=== PATIENT | male | born 1990 | race Caucasian/White ===

== ENCOUNTER 2022-11-15 22:51 | Inpatient (IN) | payer OTHER, SELFPAY ==
[2022-11-16] MEDS: Melatonin 3 MG TABLET 6 MG PO (01:51)
[2022-11-16 02:37] VITALS: BMI 37.1
[2022-11-16 06:00] VITALS: BP 113/70; PULSE 113; RESP 16; TEMP 36.8
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
[2022-11-16 07:16] LABS: MANUAL DIFF FLAG NO
[2022-11-16 07:21] LABS: Basophils Percent Auto 0.1 % (0-2); Eosinophils Absolute Auto 0.1 X10*3/uL (0.0-0.4); Eosinophils Percent Auto 1.1 % (0-4); Hematocrit 50.2 % (42.0-52.0); Hemoglobin 16.9 g/dl (14.0-18.0); Imm Gran Abs Auto 0.04 X10*3/uL (0.00-0.03); Imm Gran Pct Auto 0.4 % (0.0-0.4); Lymphocytes Absolute Auto 2.9 X10*3/uL (1.2-4.9); Lymphocytes Percent Auto 29.5 % (20-40); Mean Corpuscular HGB Conc 33.7 g/dl (31.0-36.0); Mean Corpuscular Hemoglobin 28.7 pg (27.0-33.0); Mean Corpuscular Volume 85.2 fL (80.0-98.0); Mean Platelet Volume 9.4 fL (9.4-12.4); Monocytes Absolute Auto 0.7 X10*3/uL (0.1-1.2); Monocytes Percent Auto 7.3 % (2-11); Neutrophils Percent Auto 61.6 % (45-73); Platelet Count 273 X10*3/uL (160-400); Red Blood Count 5.89 X10*6/uL (4.60-5.80); Red Cell Distribution Width 12.8 % (11.0-16.0); White Blood Count 9.8 X10*3/uL (4.8-10.8)
[2022-11-16 07:28] LABS: Estimated Average Glucose 94 mg/dL; Hemoglobin A1c % 4.9 %
[2022-11-16 07:51] LABS: Alanine Aminotransferase 27 U/L (0-40); Albumin Level 4.5 g/dL (3.5-5.0); Alkaline Phosphatase 74 U/L (39-117); Anion Gap 13 (12-20); Aspartate Amino Transferase 15 U/L (5-37); Bilirubin Total 0.8 mg/dL (0.0-1.0); Blood Urea Nitrogen 13 mg/dL (9-16); Carbon Dioxide 29 mmol/L (22-29); Chloride 103 mmol/L (96-108); Cholesterol 156 mg/dL; Estimated Glomerular Filt Rate > 60; Glucose Fasting 101 mg/dL (60-99); HDL Cholesterol 38 mg/dL; LDL Cholesterol Calculated 107 mg/dl; Potassium 4.9 mmol/L (3.3-5.1); Sodium 140 mmol/L (135-145); Total Protein 7.4 g/dL (6.5-8.0); Triglycerides 55 mg/dL
--- NOTE | 2022-11-16 08:05 | PC.NURSE ---
PT SIGNED 3 DAY NOTICE ON 11/16 TO BE UP ON 11/20.
[2022-11-16 08:07] LABS: Free T4 (Free Thyroxine) 1.02 ng/dL (0.71-1.85); Thyroid Stimulating Hormone 4.44 uIU/mL (0.32-4.0); Vitamin B12 488 pg/mL (200-900)
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
[2022-11-16] MEDS: Nicotine Polacrilex 2 MG GUM BUCCAL (09:58)
[2022-11-16] MEDS: Nicotine Polacrilex Lozenge 2 MG LOZENGE BUCCAL ×5 (10:17→20:19)
[2022-11-16] MEDS: buPROPion HCL 100 MG TABLET PO (13:24)
[2022-11-16 18:38] VITALS: BP 127/81; PULSE 103; RESP 16; TEMP 36.6
[2022-11-16] MEDS: traZODone HCL 50 MG TABLET PO (21:19)
[2022-11-17] MEDS: Nicotine 21 MG PATCH.TD24 TRANSDERMA (08:29)
[2022-11-17] MEDS: buPROPion HCl XL 150 MG TAB.ER.24H PO (08:29)
[2022-11-17 08:30] VITALS: BP 125/77; PULSE 76; RESP 18; TEMP 36.3; O2SAT 95
[2022-11-17] MEDS: Nicotine Polacrilex Lozenge 2 MG LOZENGE BUCCAL ×6 (08:32→20:42)
--- NOTE | 2022-11-17 10:59 | HO.PSYCHPN ---
Documented by User: Chichi Guerrero NP 11/17/22 14:37 Subjective Subjective Date of Service: 11/17/22 Reason For Visit: Unspecified bipolar Subjective Notes: Moore Warning and 3 Day Interim History: Reviewed in team. Patient reports feeling good today. Patient stated, I feel like the medications are helping. The suicidal thoughts went away when I was able to get my anxiety under control . Patient reports he was able to speak to his partner regarding an argument they had before coming into the hospital. Patient stated, we were able to resolve it and she feels horrible and apologized . Patient reports he plans on trying to get full custody of my daughter and take it away from my mother after I leave here . Patient is hoping to be set up with an outpatient prescriber before being discharged. Patient denies SI/HI/VH/AH at this time. Medication Compliance: Yes Side effects from medications: No Review of Systems Constitutional: Reports as per HPI Eyes: Reports as per HPI Reports as per HPI Cardiovascular: Reports as per HPI Respiratory: Reports as per HPI Gastrointestinal: Reports as per HPI Genitourinary: Reports as per HPI Musculoskeletal: Reports as per HPI Skin/Breast: Reports as per HPI Reports as per HPI Psychiatric: Reports as per HPI Endocrine: Reports as per HPI Hematologic/Lymphatic: Reports as per HPI Allergic/Immunologic: Reports as per HPI Mental Status Exam Mental Status Exam Narrative: Pt is alert and oriented; behavior is cooperative, friendly and calm; patient is not in distress; dressed in casual attire; mood is described as good ; eye contact appropriate; Speech is normal rate, volume and prosody and not pressured; no psychomotor agitation/retardation present; thought process is organized and goal directed; Thought content is on tx; otherwise pertinent to relevant topics and without any delusional content, paranoid ideations or grandiosity; denies any SI/HI. There is no evidence of perceptual disturbance. Patients insight and judgment are fair. Diagnostics Vital Signs (24Hr): Vital Signs - 24 hr 11/16/22 18:38 11/17/22 08:30 Temperature 98 F 97.4 F Pulse Rate 103 H 76 Respiratory Rate 16 18 Blood Pressure 127/81 125/77 Pulse Oximetry 95 Oxygen Delivery Method Room Air BMI result Body Mass Index 37.1 Labs 11/16/22 07:08 11/16/22 07:08 Labs: Laboratory Results - last 48 hr 11/16/22 11/16/22 11/16/22 07:08 07:08 07:08 WBC 9.8 RBC 5.89 H Hgb 16.9 Hct 50.2 MCV 85.2 MCH 28.7 MCHC 33.7 RDW 12.8 Plt Count 273 MPV 9.4 Immature Gran % (Auto) 0.4 Neut % (Auto) 61.6 Lymph % (Auto) 29.5 [place] % (Auto) 7.3 Eos % (Auto) 1.1 Baso % (Auto) 0.1 Lymph # (Auto) 2.9 [place] # (Auto) 0.7 Eos # (Auto) 0.1 Baso # (Auto) 0.0 Abs Immat Gran (auto) 0.04 H Absolute Neuts (auto) 6.0 Absolute Nucleated RBC 0.000 Nucleated RBC % (auto) 0.0 Sodium 140 Potassium 4.9 Chloride 103 Carbon Dioxide 29 Anion Gap 13 BUN 13 Creatinine 0.94 Estim Creat Clear Calc 130.0 Estimated GFR > 60 Fasting Glucose 101 H Estimat Average Glucose 94 Hemoglobin A1c % 4.9 Calcium 10.0 Total Bilirubin 0.8 AST 15 ALT 27 Alkaline Phosphatase 74 Total Protein 7.4 Albumin 4.5 Triglycerides 55 Cholesterol 156 LDL Cholesterol, Calc 107 HDL Cholesterol 38 Vitamin B12 488 TSH 4.44 H Free T4 1.02 Medications Medications Current Medications Acetaminophen (Acetaminophen 325 Mg Tablet) 650 mg PO Q6H PRN PRN Reason: Headache/Pain Mild Scale (1-3) Al Hydroxide/Mg Hydroxide (Magnesium Hydrox/Alum Hydrox 30 Ml Oral.Susp) 30 ml PO Q6H PRN PRN Reason: Heartburn/Nausea Bupropion HCl (Bupropion Hcl Xl 150 Mg Tab.Er.24h) 150 mg PO DAILY [facility] Last Admin: 11/17/22 08:29 Dose: 150 mg Hydroxyzine HCl (Hydroxyzine Hcl 50 Mg Tablet) 50 mg PO Q6H PRN PRN Reason: Anxiety Magnesium Hydroxide (Milk Of Magnesia 30 Ml Oral.Susp) 30 ml PO DAILY PRN PRN Reason: Constipation Melatonin (Melatonin 3 Mg Tablet) 6 mg PO BEDTIME [facility] Last Admin: 11/16/22 21:22 Dose: Not Given Nicotine (Nicotine 21 Mg Patch.Td24) 21 mg TRANSDERMA DAILY [facility] Last Admin: 11/17/22 08:29 Dose: 21 mg Nicotine Polacrilex (Nicotine Polacrilex Lozenge 2 Mg Lozenge) 2 mg BUCCAL Q2H PRN PRN Reason: Nicotine Cravings Last Admin: 11/17/22 10:35 Dose: 2 mg Trazodone HCl (Trazodone Hcl 50 Mg Tablet) 50 mg PO BEDTIME MRX1 PRN PRN Reason: Insomnia Last Admin: 11/16/22 21:19 Dose: 50 mg Allergies Allergies Allergy/AdvReac Type Severity Reaction Status Date / Time No Known Allergies Allergy Verified 11/15/22 23:24 Assessment & Plan Assessment & Plan (1) Depression, major, severe recurrence: Status: Acute Code(s): F33.2 - Major depressive disorder, recurrent severe without psychotic features Plan 32 year old male with a history of depression and ADHD transferred from [facility] due to suicidal ideation with plan to drive into traffic or off a bridge. He has not been on psychiatric medications due to not having a regular psychiatrist. He has financial stressors and family discord which perpetuate his depression. Plan: 3 day notice 15 Minute safety checks [place] Melatonin (patient states he does not want to take this and would like to just take Trazodone for sleep) Continue: Wellbutrin XL 150mg PO daily Trazodone 50mg PO bedtime PRN insomnia 11/17: Patient reports feeling good , believes medications are helpful. Discussed his plan to obtain custody of his child from his mother. Would like to be set up with a psychiatric precriber before discharged. Patient educated on: medication risk/benefits and therapeutic strategies Informed Consent: understands Reason for continued inpatient stay Substantial Risk for: med/psych decompensation Time Spent With Patient Time: Total time managing care of this patient today ____ minutes. Documented by User: Andrew Colvin MD 11/18/22 09:37 Subjective Subjective Reason For Visit: Unspecified bipolar Diagnostics Labs 11/16/22 07:08 11/16/22 07:08 Assessment & Plan Assessment & Plan (1) Depression, major, severe recurrence: Status: Acute Code(s): F33.2 - Major depressive disorder, recurrent severe without psychotic features Plan 32 year old male with a history of depression and ADHD transferred from [facility] due to suicidal ideation with plan to drive into traffic or off a bridge. He has not been on psychiatric medications due to not having a regular psychiatrist. He has financial stressors and family discord which perpetuate his depression. Plan: 3 day notice 15 Minute safety checks DC Melatonin (patient states he does not want to take this and would like to just take Trazodone for sleep) Continue: Wellbutrin XL 150mg PO daily Trazodone 50mg PO bedtime PRN insomnia 11/17: Patient reports feeling good , believes medications are helpful. Discussed his plan to obtain custody of his child from his mother. Would like to be set up with a psychiatric precriber before discharged. Patient feels like he is back to his regular self unstable. Appreciative of medication and future oriented. Patient is demonstrating good behavioral and impulse control on the unit; he has a 3 day notice in feeling ready to discharge. If he remains stable will proceed with discharge plans Patient educated on: diagnosis
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
[2022-11-17 18:00] VITALS: BP 145/74; PULSE 115; TEMP 37.2; O2SAT 98
[2022-11-17] MEDS: traZODone HCL 50 MG TABLET PO ×2 (20:42→21:31)
[2022-11-18 06:00] VITALS: BP 125/70; PULSE 85; RESP 18; O2SAT 98
[2022-11-18] MEDS: Nicotine 21 MG PATCH.TD24 TRANSDERMA (08:16)
[2022-11-18] MEDS: buPROPion HCl XL 150 MG TAB.ER.24H PO (08:16)
[2022-11-18] MEDS: Nicotine Polacrilex Lozenge 2 MG LOZENGE BUCCAL ×6 (08:52→20:33)
--- NOTE | 2022-11-18 10:05 | HO.PSYCHPN ---
Subjective Subjective Date of Service: 11/18/22 Reason For Visit: Unspecified bipolar Subjective Notes: 3 Day Interim History: Reviewed in team. Patient reports feeling good today. Patient stated, I'm feeling ready to leave and looking forward to seeing my family. I plan on going back to work and following up with my outpatient providers. I feel like I'm back to my normal self . Patient reports he will reach out for help again if needed . Patient denies SI/HI/VH/AH at this time. Patient 3 day notice will be up tomorrow, plan will be to discharge him tomorrow morning. Medication Compliance: Yes Side effects from medications: No Attending Groups: Yes Review of Systems Constitutional: Reports as per HPI Eyes: Reports as per HPI Reports as per HPI Cardiovascular: Reports as per HPI Respiratory: Reports as per HPI Gastrointestinal: Reports as per HPI Genitourinary: Reports as per HPI Musculoskeletal: Reports as per HPI Skin/Breast: Reports as per HPI Reports as per HPI Psychiatric: Reports as per HPI Endocrine: Reports as per HPI Hematologic/Lymphatic: Reports as per HPI Allergic/Immunologic: Reports as per HPI Mental Status Exam Mental Status Exam Narrative: Pt is alert and oriented; behavior is cooperative, friendly and calm; patient is not in distress; dressed in casual attire; mood is described as good ; eye contact appropriate; Speech is normal rate, volume and prosody and not pressured; no psychomotor agitation/retardation present; thought process is organized and goal directed; Thought content is on discharge; otherwise pertinent to relevant topics and without any delusional content, paranoid ideations or grandiosity; denies any SI/HI. There is no evidence of perceptual disturbance. Patients insight and judgment are fair. Diagnostics Vital Signs (24Hr): Vital Signs - 24 hr 11/17/22 18:00 11/18/22 06:00 Temperature 98.9 F Pulse Rate 115 H 85 Respiratory Rate 18 Blood Pressure 145/74 H 125/70 Pulse Oximetry 98 98 Oxygen Delivery Method Room Air Room Air BMI result Body Mass Index 37.1 Labs 11/16/22 07:08 11/16/22 07:08 Medications Medications Current Medications Acetaminophen (Acetaminophen 325 Mg Tablet) 650 mg PO Q6H PRN PRN Reason: Headache/Pain Mild Scale (1-3) Al Hydroxide/Mg Hydroxide (Magnesium Hydrox/Alum Hydrox 30 Ml Oral.Susp) 30 ml PO Q6H PRN PRN Reason: Heartburn/Nausea Bupropion HCl (Bupropion Hcl Xl 150 Mg Tab.Er.24h) 150 mg PO DAILY [facility] Last Admin: 11/18/22 08:16 Dose: 150 mg Hydroxyzine HCl (Hydroxyzine Hcl 50 Mg Tablet) 50 mg PO Q6H PRN PRN Reason: Anxiety Magnesium Hydroxide (Milk Of Magnesia 30 Ml Oral.Susp) 30 ml PO DAILY PRN PRN Reason: Constipation Nicotine (Nicotine 21 Mg Patch.Td24) 21 mg TRANSDERMA DAILY [facility] Last Admin: 11/18/22 08:16 Dose: 21 mg Nicotine Polacrilex (Nicotine Polacrilex Lozenge 2 Mg Lozenge) 2 mg BUCCAL Q2H PRN PRN Reason: Nicotine Cravings Last Admin: 11/18/22 08:52 Dose: 2 mg Trazodone HCl (Trazodone Hcl 50 Mg Tablet) 50 mg PO BEDTIME MRX1 PRN PRN Reason: Insomnia Last Admin: 11/17/22 21:31 Dose: 50 mg Allergies Allergies Allergy/AdvReac Type Severity Reaction Status Date / Time No Known Allergies Allergy Verified 11/15/22 23:24 Assessment & Plan Assessment & Plan (1) Depression, major, severe recurrence: Status: Acute Code(s): F33.2 - Major depressive disorder, recurrent severe without psychotic features Plan 32 year old male with a history of depression and ADHD transferred from [facility] due to suicidal ideation with plan to drive into traffic or off a bridge. He has not been on psychiatric medications due to not having a regular psychiatrist. He has financial stressors and family discord which perpetuate his depression. Plan: 3 day notice 15 Minute safety checks Wellbutrin XL 150mg PO daily Trazodone 50mg PO bedtime PRN insomnia 11/17: Patient reports feeling good , believes medications are helpful. Discussed his plan to obtain custody of his child from his mother. Would like to be set up with a psychiatric prescriber before discharged. Patient feels like he is back to his regular self. Appreciative of medication and future oriented. Patient is demonstrating good behavioral and impulse control on the unit; he has a 3 day notice in feeling ready to discharge. If he remains stable will proceed with discharge plans. 11/18: Patient continues to report feeling good . He is looking forward to discharge and seeing his family. Patient reports he plans on following up with outpatient providers and taking medications as prescribed. Will plan to discharge patient tomorrow. Patient educated on: medication risk/benefits and therapeutic strategies Informed Consent: understands Reason for continued inpatient stay Substantial Risk for: stable for discharge Time Spent With Patient Time: Total time managing care of this patient today ____ minutes.
[2022-11-18] MEDS: hydrOXYzine HCL 50 MG TABLET PO ×2 (12:21→20:52)
[2022-11-18 21:10] VITALS: BP 148/70; PULSE 100; TEMP 36.9
[2022-11-18] MEDS: traZODone HCL 50 MG TABLET PO ×2 (21:46→22:47)
[2022-11-19 09:05] VITALS: BP 132/73; PULSE 108; RESP 18; TEMP 36.7; O2SAT 95
[2022-11-19] MEDS: Nicotine 21 MG PATCH.TD24 TRANSDERMA (09:07)
[2022-11-19] MEDS: buPROPion HCl XL 150 MG TAB.ER.24H PO (09:08)
[2022-11-19] MEDS: Nicotine Polacrilex Lozenge 2 MG LOZENGE BUCCAL ×2 (09:08→11:06)
--- NOTE | 2022-11-19 11:47 | PM.PSYDC ---
DS: Providers Provider Date of Service: 11/19/22 Date of admission: 11/15/22 22:51 Date of discharge: 11/19/22 Primary care physician: Unknown Physician Attending physician on admission: Sergio Wall Consults: 11/17/22 00:28 Consult to Hospitalist Routine Comment: Consulting Provider: Hospitalist Reason For Exam: H&P admission from outside hospital Attending physician on discharge: Chichi Guerrero DS: Diagnosis Discharge Diagnosis (1) Depression, major, severe recurrence: Status: Acute DS: Medications Discharge Medications Home Medications: Previous Rx's Medication Instructions Recorded bupropion HCl 150 mg 24 hr tablet, 150 mg PO DAILY 30 days #30 tabs 11/18/22 extended release trazodone 50 mg tablet 50 mg PO BEDTIME PRN Insomnia 30 11/18/22 days #30 tabs Mental Status Exam Mental Status Exam Narrative: Pt is alert and oriented; behavior is cooperative and calm; patient is not in distress; dressed in casual attire with unkempt hair but adequate hygiene; mood is described as good ; eye contact appropriate; Speech is normal rate, volume and prosody and not pressured; no psychomotor agitation/retardation present; thought process is organized and goal directed; Thought content is on discharge; otherwise pertinent to relevant topics and without any delusional content, paranoid ideations or grandiosity; denies any SI/HI. There is no evidence of perceptual disturbance. Patients insight and judgment are fair. Data Data Completed and Pending Completed studies during hospitalization [Text1]: 11/16/22 11/16/22 11/16/22 07:08 07:08 07:08 WBC 9.8 RBC 5.89 H Hgb 16.9 Hct 50.2 MCV 85.2 MCH 28.7 MCHC 33.7 RDW 12.8 Plt Count 273 MPV 9.4 Immature Gran % (Auto) 0.4 Neut % (Auto) 61.6 Lymph % (Auto) 29.5 [place] % (Auto) 7.3 Eos % (Auto) 1.1 Baso % (Auto) 0.1 Lymph # (Auto) 2.9 [place] # (Auto) 0.7 Eos # (Auto) 0.1 Baso # (Auto) 0.0 Abs Immat Gran (auto) 0.04 H Absolute Neuts (auto) 6.0 Absolute Nucleated RBC 0.000 Nucleated RBC % (auto) 0.0 Sodium 140 Potassium 4.9 Chloride 103 Carbon Dioxide 29 Anion Gap 13 BUN 13 Creatinine 0.94 Estim Creat Clear Calc 130.0 Estimated GFR > 60 Fasting Glucose 101 H Estimat Average Glucose 94 Hemoglobin A1c % 4.9 Calcium 10.0 Total Bilirubin 0.8 AST 15 ALT 27 Alkaline Phosphatase 74 Total Protein 7.4 Albumin 4.5 Triglycerides 55 Cholesterol 156 LDL Cholesterol, Calc 107 HDL Cholesterol 38 Vitamin B12 488 TSH 4.44 H Free T4 1.02 DS: Summary Hospital Course Hospital Course: Patient is a 32 year old male with a history of depression and ADHD transferred from [facility] due to suicidal ideation with plan to drive into traffic or off a bridge. He has not been on psychiatric medications due to not having a regular psychiatrist. He has financial stressors and family discord which perpetuate his depression. Patient was started on Wellbutrin XL 150mg daily, along with Trazodone at bedtime for insomnia. Patient reported feeling the medications being helpful and feeling stable and back at baseline. Patient demonstrating good behavioral and impulse control while on the unit. He put in a 3 day notice d/t feeling ready for discharge. Patient stated he is feeling appreciative of medication and being set up with outpatient providers. Patient presented as future oriented; he discussed his plan to obtain custody of his child from his mother. He is looking forward to discharge and seeing his family. Patient reports he plans on following up with outpatient providers and taking medications as prescribed. Patient denies SI/HI/VH/AH at this time. Time spent discussing smoking cessation with patient: 3 to 10 minutes Status at Discharge Cognitive/behavioral status at discharge: Patient was interviewed prior to discharge and found to be fully oriented and without any SI or HI. Patient has insight and demonstrates good judgment in terms of wanting to pursue treatment. Patient is not in imminent risk of harm to self or others and has a safety plan that includes presenting to the closest ER or calling 911 if feeling unsafe. Patient has been observed closely by nursing and unit staff throughout admission; patient has not engaged in any behaviors that suggest dangerousness to self or others and has demonstrated appropriate behaviors and impulse control Functional status at discharge: independent ambulation Overall status at discharge: patient is back to baseline Time Spent with Patient Time attestation: Total time managing care of this patient today ____ minutes. Time spent: Less than 30 minutes Discharge Plan Discharge Anticipated Discharge Date/Time: 11/19/22 11:45 Patient Disposition: Home, Self-Care Discharge Diagnosis: Major depressive D/O Referrals: [facility] Intake [Other] - 11/27/22 10:30 am (This is an in-person appt. After this intake you will be able to schedule telehealth appts. but you will need to come in-person to the first appt in order to secure yourself a medication provider. ) [facility] w Usha Villatoro [Other] - 11/23/22 10:00 am (Telehealth) [facility] [Other] - 12/03/22 1:00 pm (Telehealth) [Other] - 11/20/22 12:00 pm (We have scheduled a follow up appointment with your PCP for 11/20/22 at 12pm in their office. If you can not make this appointment please give the office a call at [phone]. ) Discharge Medications: New bupropion HCl 150 mg Tablet Extended Release 24 Hr 150 mg PO DAILY 30 Days Qty: 30 0RF trazodone 50 mg Tablet 50 mg PO BEDTIME PRN (Reason: Insomnia) 30 Days Qty: 30 0RF Discharge Orders: Discharge Order (Routine); Ordered 11/18/22 Ordered By: Chichi Guerrero Diet: Regular diet Activity on Discharge: As tolerated Stand Alone Forms: Patient Portal Discharge page, Community Support Care Plan Goals: Maintain mood and safe behaviors Take medications as prescribed Practice coping skills Continue with outpatient providers and reach out to them as needed Health Concerns: Mood stability and behaviors Plan of Treatment: Follow up with your PCP, psychiatric provider and other outpatient providers regarding above concerns Take medications as prescribed Assessment: Patient was interviewed prior to discharge and found to be fully oriented and without any SI or HI. Patient has insight and demonstrates good judgment in terms of wanting to pursue treatment. Patient is not in imminent risk of harm to self or others and has a safety plan that includes presenting to the closest ER or calling 911 if feeling unsafe. Patient has been observed closely by nursing and unit staff throughout admission; patient has not engaged in any behaviors that suggest dangerousness to self or others and has demonstrated appropriate behaviors and impulse control. Discharge Date/Time: 11/19/22 11:18
== END 2022-11-19 11:18 | disposition home or self-care (01) | DRG 751 ==
PROVIDERS: Psychiatry & Neurology Psychiatry; Admitting Provider Psychiatry & Neurology Psychiatry; Visit Provider Registered Nurse
DX: F33.2 Major depressive disorder, recurrent severe without psychotic features (principal); R45.851 Suicidal ideations; F17.290 Nicotine dependence, other tobacco product, uncomplicated; M72.2 Plantar fascial fibromatosis; G89.29 Other chronic pain; M54.9 Dorsalgia, unspecified; Z91.51 Personal history of suicidal behavior; Z87.891 Personal history of nicotine dependence; Z79.899 Other long term (current) drug therapy
CPT/HCPCS: 36415; 80053; 80061; 82607; 83036; 84439; 84443; 85025